=== PATIENT | male | born 1985 | race Caucasian/White ===

== ENCOUNTER 2017-02-26 11:28 | Emergency (ER) | END 2017-02-26 14:40 | disposition home or self-care (01) ==

== ENCOUNTER 2017-04-07 18:13 | Emergency (ER) | END 2017-04-07 20:37 | disposition home or self-care (01) ==

== ENCOUNTER 2017-05-21 12:51 | Emergency (ER) | END 2017-05-21 17:16 | disposition home or self-care (01) ==

== ENCOUNTER 2017-05-22 18:32 | Emergency (ER) | END 2017-05-23 00:02 | disposition left against medical advice (07) ==

== ENCOUNTER 2017-06-23 08:49 | Emergency (ER) | END 2017-06-23 12:04 | disposition home or self-care (01) ==

== ENCOUNTER 2017-07-01 19:08 | Emergency (ER) | END 2017-07-01 22:36 | disposition home or self-care (01) ==

== ENCOUNTER 2017-07-14 14:51 | Emergency (ER) | END 2017-07-14 20:55 | disposition left against medical advice (07) ==

== ENCOUNTER 2017-09-25 14:12 | Emergency (ER) | END 2017-09-25 15:39 | disposition home or self-care (01) ==

== ENCOUNTER 2017-10-30 23:54 | Emergency (ER) | END 2017-10-31 04:23 | disposition left against medical advice (07) ==

== ENCOUNTER 2017-11-26 20:24 | Emergency (ER) | END 2017-11-26 21:45 | disposition home or self-care (01) ==

== ENCOUNTER 2017-12-26 18:56 | Emergency (ER) | END 2017-12-26 20:23 | disposition home or self-care (01) ==

== ENCOUNTER 2018-01-10 12:02 | Emergency (ER) | END 2018-01-10 15:22 | disposition home or self-care (01) ==

== ENCOUNTER 2018-03-29 19:53 | Emergency (ER) | payer OTHER ==
[~2018-03-29] VITALS: Ht 154.9 cm; Wt 65.1 kg
[~2018-03-29 19:53] MED LIST: CEPH-443 PO; QUET200T PO
[2018-03-29 20:15] VITALS: BP 130/89; PULSE 79; RESP 18; Ht 154.9 cm; Wt 65.1 kg
[2018-03-30] MEDS ORDERED: SILV20CR12 TOP (02:46)
[2018-03-30] MEDS ORDERED: IBUP-1542 PO (02:46)
[2018-03-30] MEDS ORDERED: CEPH-443 PO (02:46)
--- NOTE | 2018-03-30 02:48 | ERD ---
ER Documentation Chief Complaint Chief Complaint pain both hands x 2 days, states was cleaning with cleaning solution HPI 32-year-old male presents here to emergency department for complaints of pain in both hands for 2 days, was cleaning with a solution, cannot remember the name, afterwards, had burning pain, 4/10 scale, and some sloughing of the skin. Patient does not know the name of the chemicals. Patient denies any fever or chills. ROS All systems reviewed and are negative except as per history of present illness. Medications Home Meds Active Scripts Cephalexin* (Keflex*) 500 Mg Capsule, 500 MG PO QID for 7 Days, CAP Prov:TYREE JACOBSEN RU[employer]ER [employer] AND [employer]OES REPAIRER 03/30/18 Ibuprofen* (Motrin*) 600 Mg Tab, 600 MG PO Q6H PRN for PAIN AND OR ELEVATED TEMP, #30 TAB Prov:TYREE JACOBSEN [employer]ER [employer] REPAIRER 03/30/18 Silver Sulfadiazine* (Silvadene*) 1% - 20 Gm Cream.gm., 1 APPLIC TOP DAILY, #1 TUB Prov:TYREE JACOBSEN [employer]ER [employer] REPAIRER 03/30/18 Cephalexin* (Keflex*) 500 Mg Capsule, 500 MG PO Q8, #21 CAP Prov:ADITHYA VELAZQUEZ MD 01/10/18 Reported Medications Quetiapine Fumarate* (Seroquel*) 200 Mg Tablet, 200 MG PO BID, #60 TAB 05/21/17 Allergies Allergies: Coded Allergies: haloperidol (Unverified Allergy, Mild, 06/23/17) PMhx/Soc History of Surgery: No Anesthesia Reaction: No Hx Neurological Disorder: No Hx Respiratory Disorders: No Hx Cardiac Disorders: No Hx Psychiatric Problems: Yes (schizophrenia) Hx Miscellaneous Medical Probl: No Hx Alcohol Use: Yes Hx Substance Use: No (denies) Hx Tobacco Use: Yes Smoking Status: Light tobacco smoker FmHx Family History: No diabetes, No coronary disease, No other Physical Exam Vitals Vital Signs Date Temp Pulse Resp B/P (MAP) Pulse Ox O2 O2 Flow FiO2 Time Delivery Rate 03/29/18 97.1 79 18 130/89 98 20:15 (103) Physical Exam GENERAL: The patient is well developed and appropriate for usual state of health, in no apparent distress. CHEST: Clear to auscultation bilaterally. There are no rales, wheezes or rhonchi. HEART: Regular rate and rhythm. No murmurs, clicks, rubs or gallops. No S3 or S4. ABDOMEN: Soft, nontender and nondistended. Good bowel sounds. No rebound or guarding. No gross peritonitis. No gross organomegaly or masses. No Higuera sign or McBurney point tenderness. BACK: No midline or flank tenderness. EXTREMITIES: Erythematous bilateral hands, with some peeling of the skin. No ulcers. Equal pulses bilaterally. There is no peripheral clubbing, cyanosis or edema. No focal swelling or erythema. Full range of motion. Grossly neurovascularly intact. NEURO: Alert and oriented. Cranial nerves 2-12 intact. Motor strength in all 4 extremities with 5/5 strength. Sensation grossly intact. Normal speech and gait. SKIN: There is no apparent rash or petechia. The skin is warm and dry. HEMATOLOGIC AND LYMPHATIC: There is no evidence of excessive bruising or lymphedema. No gross cervical, axillary, or inguinal lymphadenopathy. Procedures/MDM Medical decision making: Symptoms consistent with chemical dermatitis, this time, no symptoms of any acute infection, the patient will be given Keflex to prevent infection, was given Silvadene and ibuprofen, to help with symptoms. Patient was does not have any symptoms of any compartment syndrome, symptoms of any neurovascular compromise. Patient was advised to follow-up with primary care doctor in 1-2 days for reevaluation of symptoms. Patient was advised to return to emergency department for any worsening symptoms. Disposition: Home. Stable. Departure Diagnosis: Primary Impression: Dermatitis, chemical Condition: Stable Patient Instructions: Contact Dermatitis TYREE JACOBSEN NP Mar 30, 2018 02:48
== END 2018-03-30 03:21 | disposition home or self-care (01) ==
LOC: FTE 19:53
DX: L25.3 Unspecified contact dermatitis due to other chemical products (principal); F17.210 Nicotine dependence, cigarettes, uncomplicated
CPT/HCPCS: 99283

== ENCOUNTER 2018-04-14 11:07 | Emergency (ER) | payer OTHER ==
[~2018-04-14] VITALS: Wt 68.0 kg
[~2018-04-14 11:07] MED LIST changes: +IBUP-1542 PO; +SILV20CR12 TOP
[2018-04-14 11:13] VITALS: BP 125/86; PULSE 66; RESP 18
[2018-04-14] MEDS ORDERED: QUET400T PO (13:08)
[2018-04-14] MEDS ORDERED: CLOT30CR24 TOP (13:09)
--- NOTE | 2018-04-14 13:12 | ERD ---
ER Documentation Chief Complaint Chief Complaint FOOT PAIN, BRUISING NOTED, PT TALKING TO SELF HPI 32-year-old male presents emerged from complaining of bilateral foot pain. Patient is a difficult tangential historian with what appears to be underlying psychiatric disease. He states has been intermittently compliant with his Seroquel, but denies any suicidal or homicidal thoughts. Although he denies auditory or visual hallucinations, he appears to be psychotic with a tangential thought process. Patient states that he is having bilateral foot pain. He has been ambulatory without difficulty and has no trauma. He reports no fevers or chills. He reports a rash on both of his hands and feet. ROS All systems reviewed and are negative except as per history of present illness. Medications Home Meds Active Scripts Clotrimazole* (Clotrimazole* AF) 1% - 30 Gm Cream.gm., 1 APPLIC TOP BID for 7 D ays, TUB Prov:CHHAYA PUGH 04/14/18 Quetiapine Fumarate* (Seroquel*) 400 Mg Tablet, 400 MG PO DAILY, #20 TAB Prov:CHHAYA PUGH 04/14/18 Cephalexin* (Keflex*) 500 Mg Capsule, 500 MG PO QID for 7 Days, CAP Prov:SKYEIATYREE. VEHICLE [employer]UEL SYSTEMS CONVERTER 03/30/18 Ibuprofen* (Motrin*) 600 Mg Tab, 600 MG PO Q6H PRN for PAIN AND OR ELEVATED TEMP, #30 TAB Prov:TYREE JACOBSEN T. VEHICLE [employer]UEL SYSTEMS CONVERTER 03/30/18 Silver Sulfadiazine* (Silvadene*) 1% - 20 Gm Cream.gm., 1 APPLIC TOP DAILY, #1 TUB Prov:TYREE JACOBSEN. VEHICLE [employer]EL SYSTEMS CONVERTER 03/30/18 Cephalexin* (Keflex*) 500 Mg Capsule, 500 MG PO Q8, #21 CAP Prov:ADITHYA VELAZQUEZ MD 01/10/18 Reported Medications Quetiapine Fumarate* (Seroquel*) 200 Mg Tablet, 200 MG PO BID, #60 TAB 05/21/17 Allergies Allergies: Coded Allergies: haloperidol (Unverified Allergy, Mild, 06/23/17) PMhx/Soc History of Surgery: No Anesthesia Reaction: No Hx Neurological Disorder: No Hx Respiratory Disorders: No Hx Cardiac Disorders: No Hx Psychiatric Problems: Yes (schizophrenia) Hx Miscellaneous Medical Probl: No Hx Alcohol Use: Yes Hx Substance Use: No (denies) Hx Tobacco Use: Yes Smoking Status: Current every day smoker Physical Exam Vitals Vital Signs Date Temp Pulse Resp B/P (MAP) Pulse Ox O2 O2 Flow FiO2 Time Delivery Rate 04/14/18 96.4 66 18 125/86 100 11:13 (99) Physical Exam GENERAL: The patient is well developed and appropriate for usual state of health in no apparent distress HEENT: Pupils equal, round, and reactive to light. EOMI. There is no scleral icterus. NECK: C-spine is soft and supple, there is no meningismus. There is no cervical lymphadenopathy. LUNGS: Clear to auscultation bilaterally. There are no rales, wheezes or rhonchi. HEART: Regular rate and rhythm, no murmurs, clicks, rubs or gallops. ABDOMEN: Soft, non-tender, non-distended. There are bowel sounds in all four quadrants. No rebound or guarding. EXTREMITIES: There is no peripheral cyanosis or edema. No focal swelling or erythema. NEURO: The patient moves all four extremities with 5/5 strength. Cranial nerves II - XII are intact. Normal gait. Alert and oriented SKIN: Patient has a tinea infection on the palms of both hands as well as the feet. HEME/LYMPHATIC: There is no evidence of excessive bruising or lymphedema. PSYCHIATRIC: Patient is awake alert oriented and able to expose a care plan for himself. He has a tangential thought process. There is no agitation or delirium noted. He is denying auditory or visual hallucinations, suicidal or homicidal thoughts. Results 24 hrs Current Medications Medications Dose Sig/Shane Start Time Status Last (Trade) Ordered Route PRN Stop Time Admin Dose Reason Admin Quetiapine 400 mg ONCE ONCE 04/14/18 Fumarate PO 13:30 04/14/18 (Seroquel) 13:31 Procedures/MDM Patient was taken to a room, seen and examined Medical decision m[age]-year-old male with an underlying history of psychiatric disease presents the emergency room with what appears to be a tinea infection. At this time, I see no indication to rather significant decompensated acute medical illness and is certainly appropriate for outpatient care at this rash. From a psychiatric standpoint he clearly requires ongoing psychiatric treatment but is not in apparent danger to himself or others. consulting services associate will be involved with appropriate discharge as per hospital protocol at this time he does appear to be appropriate for outpatient care. Departure Diagnosis: Primary Impression: Tinea pedis Additional Impression: Blisters of multiple sites Condition: Stable Patient Instructions: Athlete'S Foot Additional Instructions: Please see your psychiatrist this week. Return for any problems or concerns CHHAYA PUGH Apr 14, 2018 13:12
[2018-04-14] MEDS ORDERED: QUETIAPINE 100 MG TAB PO ONE (13:30)
== END 2018-04-14 16:24 | disposition home or self-care (01) ==
LOC: E/R 11:07
DX: B35.3 Tinea pedis (principal); F17.210 Nicotine dependence, cigarettes, uncomplicated; R23.8 Other skin changes
CPT/HCPCS: Z7502; Z7610; 99283

== ENCOUNTER 2018-04-27 03:48 | Emergency (ER) | payer OTHER ==
[~2018-04-27] VITALS: Ht 165.1 cm; Wt 68.0 kg
[~2018-04-27 03:48] MED LIST changes: +CLOT30CR24 TOP; +QUET400T PO
[2018-04-27 04:02] VITALS: Ht 165.1 cm; Wt 68.0 kg
--- NOTE | 2018-04-27 10:19 | ERD ---
ER Documentation Chief Complaint Chief Complaint states needs medication refill HPI 32-year-old man with a history of schizophrenia states he has not used Seroquel for a few days but was also given a few other prescriptions from his psychiatrist but he has been noncompliant with those. He has increasing agitation and suicidal thoughts, auditory hallucinations. He does not recall the names of his most recent medications but has not filled them. He denies drug or alcohol use. No other symptoms. ROS All systems reviewed and are negative except as per history of present illness. Medications Home Meds Active Scripts Clotrimazole* (Clotrimazole* AF) 1% - 30 Gm Cream.gm., 1 APPLIC TOP BID for 7 Days, TUB Prov:CHHAYA PUGH 04/14/18 Quetiapine Fumarate* (Seroquel*) 400 Mg Tablet, 400 MG PO DAILY, #20 TAB Prov:CHHAYA PUGH 04/14/18 Cephalexin* (Keflex*) 500 Mg Capsule, 500 MG PO QID for 7 Days, CAP Prov:TYREE JACOBSEN PULP TESTER 03/30/18 Ibuprofen* (Motrin*) 600 Mg Tab, 600 MG PO Q6H PRN for PAIN AND OR ELEVATED TEMP, #30 TAB Prov:TYREE JACOBSEN PULP TESTER 03/30/18 Silver Sulfadiazine* (Silvadene*) 1% - 20 Gm Cream.gm., 1 APPLIC TOP DAILY, #1 TUB Prov:TYREE JACOBSEN PULP TESTER 03/30/18 Cephalexin* (Keflex*) 500 Mg Capsule, 500 MG PO Q8, #21 CAP Prov:ADITHYA VELAZQUEZ MD 01/10/18 Reported Medications Quetiapine Fumarate* (Seroquel*) 200 Mg Tablet, 200 MG PO BID, #60 TAB 05/21/17 Allergies Allergies: Coded Allergies: haloperidol (Unverified Allergy, Mild, 06/23/17) PMhx/Soc Schizophrenia History of Surgery: No Anesthesia Reaction: No Hx Neurological Disorder: No Hx Respiratory Disorders: No Hx Cardiac Disorders: No Hx Psychiatric Problems: Yes (schizophrenia) Hx Miscellaneous Medical Probl: No Hx Alcohol Use: Yes Hx Substance Use: No (denies) Hx Tobacco Use: Yes FmHx Family History: No diabetes Physical Exam Vitals Vital Signs Date Temp Pulse Resp B/P (MAP) Pulse Ox O2 O2 Flow FiO2 Time Delivery Rate 04/27/18 64 15 113/67 99 Room Air 10:20 (82) 04/27/18 97.8 61 18 118/74 99 04:02 (89) Physical Exam GENERAL: Well-developed, agitated, afebrile HEENT: Moist mucous membranes, pink conjunctiva, no cervical spine tenderness or step-off deformities, no goiter, no jaundice or icterus, extraocular movements intact without pain. NEURO: Alert and oriented 3, able to answer simple questions and follow commands, pupils equal round reactive to light CARDIAC: Regular rate and rhythm, no murmurs rubs or gallops LUNGS: Clear bilaterally no wheezing crackles or stridor SKIN: Warm and dry to touch, no abrasions, contusions, or hematomas, no lacerations, no ecchymosis, no target lesions, and without ulcers PSYCH: Agitated Result Diagram: 04/27/18 1000 04/27/18 1000 Results 24 hrs Laboratory Tests Test 04/27/18 10:00 04/27/18 11:20 White Blood Count 6.0 10^3/ul Red Blood Count 4.98 10^6/ul Hemoglobin 13.7 g/dl Hematocrit 43.2 % Mean Corpuscular Volume 86.7 fl Mean Corpuscular Hemoglobin 27.5 pg Mean Corpuscular Hemoglobin Concent 31.7 g/dl Red Cell Distribution Width 12.9 % Platelet Count 356 10^3/UL Mean Platelet Volume 8.9 fl Immature Granulocytes % 0.200 % Neutrophils % 42.2 % Lymphocytes % 43.1 % Monocytes % 10.3 % Eosinophils % 3.7 % Basophils % 0.5 % Nucleated Red Blood Cells % 0.0 /100WBC Immature Granulocytes # 0.010 10^3/ul Neutrophils # 2.5 10^3/ul Lymphocytes # 2.6 10^3/ul Monocytes # 0.6 10^3/ul Eosinophils # 0.2 10^3/ul Basophils # 0.0 10^3/ul Nucleated Red Blood Cells # 0.0 10^3/ul Sodium Level 140 mmol/L Potassium Level 4.4 mmol/L Chloride Level 105 mmol/L Carbon Dioxide Level 24 mmol/L Anion Gap 11 Blood Urea Nitrogen 22 mg/dl Creatinine 0.85 mg/dl Est Glomerular Filtrat Rate mL/min > 60 mL/min Glucose Level 87 mg/dl Calcium Level 9.7 mg/dl Total Bilirubin 0.6 mg/dl Direct Bilirubin 0.00 mg/dl Indirect Bilirubin 0.6 mg/dl Aspartate Amino Transf (AST/SGOT) 46 IU/L Alanine Aminotransferase (ALT/SGPT) 27 IU/L Alkaline Phosphatase 94 IU/L Total Protein 7.6 g/dl Albumin 4.4 g/dl Globulin 3.20 g/dl Albumin/Globulin Ratio 1.37 Salicylates Level < 1.0 mg/dl Acetaminophen Level < 10.0 ug/ml Ethyl Alcohol Level < 10.0 mg/dl Urine Color YELLOW Urine Clarity CLEAR Urine pH 5.0 Urine Specific [place] 1.026 Urine Ketones TRACE mg/dL Urine Nitrite NEGATIVE mg/dL Urine Bilirubin NEGATIVE mg/dL Urine Urobilinogen NEGATIVE mg/dL Urine Leukocyte Esterase NEGATIVE [place]/ul Urine Hemoglobin NEGATIVE mg/dL Urine Glucose NEGATIVE mg/dL Urine Total Protein NEGATIVE mg/dl Urine Opiates Screen NEGATIVE Urine Barbiturates NEGATIVE Urine Amphetamines Screen POSITIVE Urine Benzodiazepines Screen NEGATIVE Urine Cocaine Screen NEGATIVE Urine Cannabinoids NEGATIVE Current Medications Medications Dose Sig/Shane Start Time Status Last (Trade) Ordered Route PRN Stop Time Admin Dose Reason Admin Olanzapine 10 mg ONCE ONCE 04/27/18 DC 04/27/18 (Zyprexa) PO 12:30 12:52 04/27/18 12:45 Procedures/MDM Security one-to-one watch was established and tele-psychiatry consultation was ordered. CBC was normal, electrolytes revealed mild dehydration, liver function tests normal, drug screen positive for methamphetamines, aspirin Tylenol, ethanol levels negative Tele-psychiatry recommended Zyprexa p.o. which I administered. Observation Note: Time: 5 hours Family Hx: No Hypertension Evaluation: Multiple exams showed improving symptoms and no evidence of mental status or abnormal vital signs. PET team evaluation has been ordered and disposition is pending their evaluation. Patient's behavioral symptoms have stabilized while in the department. Patient is medically cleared and appropriate for psychiatric evaluation and work up. No e/o neurologic, toxic, infectious, or metabolic cause. Departure Diagnosis: Primary Impression: Psychosis Psychosis type: unspecified psychosis type Qualified Codes: F29 - Unspecified psychosis not due to a substance or known physiological condition Additional Impression: Methamphetamine abuse Condition: Stable CECILIA KELLOGG MD Apr 27, 2018 10:19
--- NOTE | 2018-04-27 11:52 | PSY ---
Date/Time of Note Date/Time of Note DATE: 04/27/18 TIME: 11:47 Psychiatric Subjective Eval Consent Pt consented to telemedicine: Yes Subjective Evaluation Patient location: emergency Chief Complaint: states needs medication refill History of present illness 32 yo disabled single male with hx schizophrenia self presenting to ED c/o command AH and SI; pt is circumstantial, he talks about his grandmother accusing him of taking jennifer eof her things and he is upset about it; he ran out of his meds; he is smiling but then asked about SI he says he is still suicidal but no plan; not able to feel safe though; denies VH; paranoid. Off meds for a few days. Denies HI. Past psychiatric history hx prior inpt due to psychosis Hospitalization: Suicidal Attempt(s) Family History denies Medical history Problems Medical Problems: (1) Blisters of multiple sites Status: Acute (2) Blisters of multiple sites Status: Acute (3) Contact dermatitis Status: Acute (4) Dermatitis, chemical Status: Acute (5) Drug-seeking behavior Status: Acute (6) Drug-seeking behavior Status: Acute (7) Encounter for medication refill Status: Acute (8) Foot pain Status: Acute (9) Foot pain Status: Acute (10) Headache Status: Acute (11) Medication refill Status: Acute (12) Onychomycosis Status: Acute (13) Patient left after triage Status: Acute (14) Patient left after triage Status: Acute (15) Patient left after triage Status: Acute (16) Patient left before evaluation by physician Status: Acute (17) Plantar fasciitis, bilateral Status: Acute (18) Psychological disorder Status: Acute (19) Psychological disorder Status: Acute (20) Schizophrenia Status: Acute (21) Tinea pedis Status: Acute (22) Tinea pedis Status: Acute (23) UTI (urinary tract infection) Status: Acute (24) UTI (urinary tract infection) Status: Acute Allergies: Coded Allergies: haloperidol (Unverified Allergy, Mild, 06/23/17) Substance Abuse Substance abuse history: Yes Prior substance abuse treatmen: No Social History Marital status: single Level of education: 9th grade DPA/Conservatorship: No Occupation/Fci: unemployed Psychiatric Objective Eval Review of Systems: Review of Systems: Not Applicable Physical Examination: Physical Examination: Not Applicable Mental Status Examination: Appearance: Disheveled Eye Contact: Good Psychomotor Activity: Normal Speech: Clear AFFECT: Appropriate Mood: Appropriate/Full Though Process: Circumstantial Thought Content: Hallucinations Suicidal: Yes Homicidal: No On 72 hour hold: No Orientation: x4 Cognition: Alert Insight: Impared Judgement: Impared Laboratory Results Laboratory Tests Test 04/27/18 10:00 04/27/18 11:20 White Blood Count 6.0 10^3/ul Red Blood Count 4.98 10^6/ul Hemoglobin 13.7 g/dl Hematocrit 43.2 % Mean Corpuscular Volume 86.7 fl Mean Corpuscular Hemoglobin 27.5 pg Mean Corpuscular Hemoglobin Concent 31.7 g/dl Red Cell Distribution Width 12.9 % Platelet Count 356 10^3/UL Mean Platelet Volume 8.9 fl Immature Granulocytes % 0.200 % Neutrophils % 42.2 % Lymphocytes % 43.1 % Monocytes % 10.3 % Eosinophils % 3.7 % Basophils % 0.5 % Nucleated Red Blood Cells % 0.0 /100WBC Immature Granulocytes # 0.010 10^3/ul Neutrophils # 2.5 10^3/ul Lymphocytes # 2.6 10^3/ul Monocytes # 0.6 10^3/ul Eosinophils # 0.2 10^3/ul Basophils # 0.0 10^3/ul Nucleated Red Blood Cells # 0.0 10^3/ul Sodium Level 140 mmol/L Potassium Level 4.4 mmol/L Chloride Level 105 mmol/L Carbon Dioxide Level 24 mmol/L Anion Gap 11 Blood Urea Nitrogen 22 mg/dl Creatinine 0.85 mg/dl Est Glomerular Filtrat Rate mL/min > 60 mL/min Glucose Level 87 mg/dl Calcium Level 9.7 mg/dl Total Bilirubin 0.6 mg/dl Direct Bilirubin 0.00 mg/dl Indirect Bilirubin 0.6 mg/dl Aspartate Amino Transf (AST/SGOT) 46 IU/L Alanine Aminotransferase (ALT/SGPT) 27 IU/L Alkaline Phosphatase 94 IU/L Total Protein 7.6 g/dl Albumin 4.4 g/dl Globulin 3.20 g/dl Albumin/Globulin Ratio 1.37 Salicylates Level < 1.0 mg/dl Acetaminophen Level < 10.0 ug/ml Ethyl Alcohol Level < 10.0 mg/dl Urine Color YELLOW Urine Clarity CLEAR Urine pH 5.0 Urine Specific [place] 1.026 Urine Ketones TRACE mg/dL Urine Nitrite NEGATIVE mg/dL Urine Bilirubin NEGATIVE mg/dL Urine Urobilinogen NEGATIVE mg/dL Urine Leukocyte Esterase NEGATIVE [place]/ul Urine Hemoglobin NEGATIVE mg/dL Urine Glucose NEGATIVE mg/dL Urine Total Protein NEGATIVE mg/dl Assessment and Plan Assessment/Diagnosis Diagnosis SCHIZOPHRENIA Recommendation/Plan Medication Management RESUME SEROQUEL 200 MG PO BID; FOR AGITATION: ZYRPEXA 10 MG+ ATIVAN 2 MG + BEANDRYL 50 MG PO OR IM PRN Q 12 HRS Multiple antipsychotics: Yes Psychotherapy DEFER TO INPT Discharge Disposition: Psychiatric inpatient Legal Status: Voluntary Other PT STILL REPROTS ACTIVE SI WITHOUT A PLAN OR INTENT AND COMMAND ; NOT ABLE TO CONTRACT FOR SAFETY; PT IS WILLING TO ACCEPT [facility]. TORIBIO VIVEROS MD Apr 27, 2018 11:52
[2018-04-27] MEDS ORDERED: OLANZAPINE 5 MG TAB PO ONE (12:30)
[2018-04-27 16:12] VITALS: BP 97/57; PULSE 57; RESP 15
== END 2018-04-27 16:22 ==
LOC: FTE 03:48 → E/R 16:22
DX: F29 Unspecified psychosis not due to a substance or known physiological condition (principal); F15.10 Other stimulant abuse, uncomplicated; R40.2142 Coma scale, eyes open, spontaneous, at arrival to emergency department; R40.2252 Coma scale, best verbal response, oriented, at arrival to emergency department; R40.2362 Coma scale, best motor response, obeys commands, at arrival to emergency department; Z76.0 Encounter for issue of repeat prescription; Z87.891 Personal history of nicotine dependence
CPT/HCPCS: 36415; 80053; 80307; 81003; 85025; Z7502; Z7610; 99285

== ENCOUNTER 2018-05-08 14:12 | Emergency (ER) | payer OTHER ==
[~2018-05-08] VITALS: Ht 165.1 cm; Wt 65.0 kg
[~2018-05-08 14:12] MED LIST changes: -CEPH-443 PO; -CLOT30CR24 TOP; -QUET200T PO; -SILV20CR12 TOP
[2018-05-08 15:00] VITALS: BP 123/64; PULSE 74; RESP 18; Ht 165.1 cm; Wt 65.0 kg
[2018-05-08] MEDS ORDERED: IBUP-1561 PO (18:35)
[2018-05-08] MEDS ORDERED: BEN25 PO (18:35)
[2018-05-08] MEDS ORDERED: HYDR28.334 TP (18:36)
[2018-05-08] MEDS ORDERED: HDRP454O TOP (18:38)
[2018-05-08] MEDS ORDERED: HYDROCODONE/APAP (5/325) TAB PO ONE (19:00)
--- NOTE | 2018-05-08 23:08 | ERD ---
ER Documentation Chief Complaint Chief Complaint pt bib self with c/o hands burn, "infection to nose" ROS All systems reviewed and are negative except as per history of present illness. Medications Home Meds Active Scripts Hydrophilic Base* (Aquaphor*) 454 Gm-Topical Oint, 1 APPLIC TOP BID for dermatitis for 7 Days, #1 JAR Prov:ALY PERALTA DO 05/08/18 Hydrocortisone (Hydrocortisone Cr) 28.35 Gm Cr, 28.35 GM TP BID PRN for ITCHING for 7 Days, #1 TUBE Prov:ALY PERALTA DO 05/08/18 Ibuprofen* (Motrin*) 400 Mg Tab, 400 MG PO Q6H PRN for PAIN AND OR ELEVATED TEMP, #30 TAB Prov:ALY PERALTA DO 05/08/18 Diphenhydramine Hcl* (Benadryl*) 25 Mg Cap, 25 MG PO Q6H PRN for ITCHING, #30 CAP Prov:ALY PERALTA DO 05/08/18 Quetiapine Fumarate* (Seroquel*) 400 Mg Tablet, 400 MG PO DAILY, #20 TAB Prov:CHHAYA PUGH 04/14/18 Ibuprofen* (Motrin*) 600 Mg Tab, 600 MG PO Q6H PRN for PAIN AND OR ELEVATED TEMP, #30 TAB Prov:TYREE JACOBSEN NP 03/30/18 Allergies Allergies: Coded Allergies: haloperidol (Unverified Allergy, Mild, 04/27/18) PMhx/Soc History of Surgery: No Anesthesia Reaction: No Hx Neurological Disorder: No Hx Respiratory Disorders: No Hx Cardiac Disorders: No Hx Psychiatric Problems: Yes (schizophrenia, bipolar) Hx Miscellaneous Medical Probl: No Hx Alcohol Use: Yes (occasion) Hx Substance Use: Yes (meth) Hx Tobacco Use: Yes Smoking Status: Current every day smoker Physical Exam Vitals Vital Signs Date Temp Pulse Resp B/P (MAP) Pulse Ox O2 O2 Flow FiO2 Time Delivery Rate 05/08/18 98.3 74 18 123/64 97 15:00 (83) Physical Exam Const: No acute distress Head: Atraumatic Eyes: Normal Conjunctiva ENT: Normal External Ears, Nose and Mouth. Neck: Full range of motion. No meningismus. Resp: Clear to auscultation bilaterally Cardio: Regular rate and rhythm, no murmurs Abd: Soft, non tender, non distended. Normal bowel sounds Skin: No petechiae or rashes Back: No midline or flank tenderness Ext: No cyanosis, or edema Neur: Awake and alert Psych: Normal Mood and Affect Results 24 hrs Current Medications Medications Dose Sig/Shane Start Time Status Last (Trade) Ordered Route PRN Stop Time Admin Dose Reason Admin 1 tab ONCE ONCE 05/08/18 DC 05/08/18 Acetaminophen PO 19:00 18:40 / 05/08/18 19:00 Hydrocodone Bitart ([place] (5/325)) Departure Diagnosis: Primary Impression: Pain of hand Condition: Fair Patient Instructions: Dermatitis, Non-Specific Referrals: [facility] YOU HAVE RECEIVED A MEDICAL SCREENING EXAM AND THE RESULTS INDICATE THAT YOU DO NOT HAVE A CONDITION THAT REQUIRES URGENT TREATMENT IN THE EMERGENCY DEPARTMENT. FURTHER EVALUATION AND TREATMENT OF YOUR CONDITION CAN WAIT UNTIL YOU ARE SEEN IN YOUR DOCTORS OFFICE WITHIN THE NEXT 1-2 DAYS. IT IS YOUR RESPONSIBILITY TO MAKE AN APPOINTMENT FOR FOLOW-UP CARE. IF YOU HAVE A PRIMARY DOCTOR --you should call your primary doctor and schedule an appointment IF YOU DO NOT HAVE A PRIMARY DOCTOR YOU CAN CALL OUR PHYSICIAN REFERRAL HOTLINE AT IF YOU CAN NOT AFFORD TO SEE A PHYSICIAN YOU CAN CHOSE FROM THE FOLLOWING [facility] [id number] [facility]. [facility] [address] [facility]. [facility] [address] [facility] [facility] [address] [facility]. [facility] [address] [facility]. [facility]. [address] Additional Instructions: Call your primary care doctor TOMORROW for an appointment during the next 1-2 days.See the doctor sooner or return here if your condition worsens before your appointment time. ALY PERALTA DO May 08, 2018 23:08
== END 2018-05-08 18:47 | disposition home or self-care (01) ==
LOC: FTE 14:12
DX: M79.643 Pain in unspecified hand (principal); F17.210 Nicotine dependence, cigarettes, uncomplicated
CPT/HCPCS: 99283

== ENCOUNTER 2018-05-09 14:51 | Emergency (ER) | payer OTHER ==
[~2018-05-09] VITALS: Wt 67.0 kg
[~2018-05-09 14:51] MED LIST changes: +BEN25 PO; +HDRP454O TOP; +HYDR28.334 TP; +IBUP-1561 PO
[2018-05-09 15:08] VITALS: BP 139/67; PULSE 95; RESP 20
--- NOTE | 2018-05-09 17:40 | ERD ---
ER Documentation Chief Complaint Chief Complaint seen yest for itching: requesting MD note so he won't fail drug test in AM HPI This is a 32-year-old male with a history of schizophrenia and bipolar disorder who was seen here yesterday. Patient presents here today seeking a note stating that was done during his ER visit yesterday. Patient was seen here yesterday for bilateral hand pain and he was given a [place]. Patient states that he is g oing to be drug tested by his commissioned defence force officer and he wants a note stating that he was given a [place] here yesterday. Patient denies any fever, chills, tingling, numbness, lack sensation in all other symptoms. ROS All systems reviewed and are negative except as per history of present illness. Medications Home Meds Active Scripts Hydrophilic Base* (Aquaphor*) 454 Gm-Topical Oint, 1 APPLIC TOP BID for dermatitis for 7 Days, #1 JAR Prov:ALY PERALTA DO 05/08/18 Hydrocortisone (Hydrocortisone Cr) 28.35 Gm Cr, 28.35 GM TP BID PRN for ITCHING for 7 Days, #1 TUBE Prov:ALY PERALTA DO 05/08/18 Ibuprofen* (Motrin*) 400 Mg Tab, 400 MG PO Q6H PRN for PAIN AND OR ELEVATED TE MP, #30 TAB Prov:ALY PERALTA DO 05/08/18 Diphenhydramine Hcl* (Benadryl*) 25 Mg Cap, 25 MG PO Q6H PRN for ITCHING, #30 CAP Prov:ALY PERALTA DO 05/08/18 Quetiapine Fumarate* (Seroquel*) 400 Mg Tablet, 400 MG PO DAILY, #20 TAB Prov:CHHAYA PUGH 04/14/18 Ibuprofen* (Motrin*) 600 Mg Tab, 600 MG PO Q6H PRN for PAIN AND OR ELEVATED TEMP, #30 TAB Prov:TYREE JACOBSEN NP 03/30/18 Allergies Allergies: Coded Allergies: haloperidol (Unverified Allergy, Mild, 04/27/18) PMhx/Soc Medical and Surgical Hx: pt denies Surgical Hx History of Surgery: No Anesthesia Reaction: No Hx Neurological Disorder: No Hx Respiratory Disorders: No Hx Cardiac Disorders: No Hx Psychiatric Problems: Yes (schizophrenia, bipolar) Hx Miscellaneous Medical Probl: No Hx Alcohol Use: Yes (occasion) Hx Substance Use: Yes (meth) Hx Tobacco Use: Yes Smoking Status: Current every day smoker FmHx Family History: No diabetes Physical Exam Vitals Vital Signs Date Temp Pulse Resp B/P (MAP) Pulse Ox O2 O2 Flow FiO2 Time Delivery Rate 05/09/18 97.5 95 20 139/67 100 15:08 (91) Physical Exam Const: No acute distress Head: Atraumatic Eyes: Normal Conjunctiva ENT: Normal External Ears, Nose and Mouth. Neck: Full range of motion. No meningismus. Resp: Clear to auscultation bilaterally Cardio: Regular rate and rhythm, no murmurs Ext: No cyanosis, or edema Upper Extremity - bilateral: Skin: No laceration, or evidence of external trauma Compartments: Soft Motor: Full active range of motion shoulder/elbow/wrist/hand Sensation: Intact shoulder/pinky/middle finger/thumb web space Bones: Nontender humerus/elbow/forearm/wrist/hand Snuffbox: Nontender Joints: No effusion Pulses/Perfusion: 2+ radial, Capillary refill < 2 seconds Neur: Awake and alert Psych: Anxious Procedures/MDM ER COURSE: The patient was stable throughout ED course. I kept the patient and/or family informed of laboratory and diagnostic imaging results throughout the emergency room course. The patient was promptly evaluated and a treatment plan was devised based on H&P and other data. This plan was discussed with the patient who agreed and had no further questions or concerns prior to discharge. MEDICAL DECISION MAKING: This is a 32-year-old male with a history of schizophrenia and bipolar disorder who presents ED seeking a note stating what was done yesterday in the ER. I reviewed patient's chart and he was indeed given a [place] for his bilateral hand pain. I advised patient that if he is being drug tested he should not be given narcotics and should tell his providers this when he is seen so he does not run into this issue again. At this time there is no psychiatric or medical emergency. Hand exam is unremarkable. Patient's vitals are stable and he can be managed with close outpatient follow-up. Advised patient follow-up with his primary care in the next 24 hours. Return to ED with any worsening symptoms DISPOSITION PLAN: We discussed follow up with the patient's primary care doctor within 24 to 48 hours. Patient counseled regarding my diagnostic impression and care plan. Prior to discharge all questions answered. Pt agrees with treatment plan and understands strict return precautions. Precautionary instructions provided including instructions to return to the ER if not improving or for any worsening or changing symptoms or concerns. ExitCare instructions provided. Prior to discharge, patients vital signs have been reviewed SPECIALIST FOLLOW UP RECOMMENDED: None Patient has been advised to follow up with primary care in 1-2 days. Disclaimer: Inadvertent spelling and grammatical errors are likely due to EHR/dictation software use and do not reflect on the overall quality of patient care. Also, please note that the electronic time recorded on this note does not necessarily reflect the actual time of the patient encounter. Departure Diagnosis: Primary Impression: Hand pain Laterality: bilateral Qualified Codes: M79.641 - Pain in right hand; M79.642 - Pain in left hand Condition: Stable Patient Instructions: Pain Management Referrals: [facility] YOU HAVE RECEIVED A MEDICAL SCREENING EXAM AND THE RESULTS INDICATE THAT YOU DO NOT HAVE A CONDITION THAT REQUIRES URGENT TREATMENT IN THE EMERGENCY DEPARTMENT. FURTHER EVALUATION AND TREATMENT OF YOUR CONDITION CAN WAIT UNTIL YOU ARE SEEN IN YOUR DOCTORS OFFICE WITHIN THE NEXT 1-2 DAYS. IT IS YOUR RESPONSIBILITY TO MAKE AN APPOINTMENT FOR FOLOW-UP CARE. IF YOU HAVE A PRIMARY DOCTOR --you should call your primary doctor and schedule an appointment IF YOU DO NOT HAVE A PRIMARY DOCTOR YOU CAN CALL OUR PHYSICIAN REFERRAL HOTLINE AT IF YOU CAN NOT AFFORD TO SEE A PHYSICIAN YOU CAN CHOSE FROM THE FOLLOWING [facility] [address] [facility] [facility] [address] [facility] [address] [facility] [facility] [address] [facility]. [facility] [address] [facility]. [facility]. [address] Additional Instructions: Patient was seen here yesterday by another provider and was given a [place] for pain. Patient is requesting a note today stating what was done yesterday at his visit. I have confirmed that patient received a [place] yesterday at the emergency room for bilateral hand pain. Patient advised to return to the ED immediately for new or worsening symptoms. Patient advised to follow up with primary care provider in the next 24-48 hours. Patient verbalized understanding and agrees with treatment plan and course of action. If patient has no primary care they may follow up with one of the community clinics listed on the following page or one of the options listed below [facility] + [facility] [address] [place] [phone] or [facility] [id number] [place] [id number] or [facility] [address] [place] [address] VIDHI TAI PA-C May 09, 2018 17:40
== END 2018-05-09 17:37 | disposition home or self-care (01) ==
LOC: FTE 14:51
DX: M79.642 Pain in left hand (principal); F17.210 Nicotine dependence, cigarettes, uncomplicated
CPT/HCPCS: 99282